=== PATIENT | male | born 1985 | race Caucasian/White ===

== ENCOUNTER 2021-01-13 11:03 | Inpatient (IN) | payer OTHER, SELFPAY ==
[2021-01-13] VITALS (15 sets, daily range): BP systolic 126–163; BP diastolic 68–98; PULSE 99–126; RESP 16–20; TEMP 37.3–38.9; O2SAT 92–99; BMI 34.8
--- NOTE | 2021-01-13 11:25 | CT_ITS ---
WS: [id number] CT ABDOMEN AND PELVIS WITH CONTRAST HISTORY: ? perianal to scrotal fistula TECHNIQUE: Imaging performed of the abdomen and pelvis with IV contrast. Single phase imaging of the abdomen. Coronal and sagittal reformats are submitted. All CT scans at [facility] use at least one of these dose optimization techniques: automated exposure control; mA and/or kV adjustment per patient size (includes targeted exams where dose is matched to clinical indication); or iterativ e reconstruction. IV CONTRAST: Omnipaque 300; 95 mL IV. Oral contrast: No DLP: 3240.11 mGy.cm COMPARISON: None available. Lower thorax: 3 mm nodule incompletely visualized at the RIGHT lung base. Heart is normal size. Small hiatal hernia. Liver/biliary system: Normal size liver with moderate hepatic steatosis. Gallbladder: Normal. No gallstones or wall thickening. No pericholecystic fluid. Pancreas: Normal. Spleen: Normal. Adrenal glands: Normal. Right kidney: Normal. Left kidney: Normal size kidney. 2 mm nonobstructing calcification in the mid kidney. Aorta: Mild atherosclerosis with no aneurysm. Lymphadenopathy: None. Free fluid: None. GI tract: Normal appendix. No GI tract obstruction. No significant perinephric inflammatory changes s urrounding the rectum or sigmoid. No air in the perirectal fat. Abdominal wall: Unremarkable abdominal wall. No hernia. Pelvis: Minimally distended urinary bladder. No free fluid or adenopathy. There are slightly prominen t bilateral inguinal lymph nodes which are mildly hypervascular. Diffuse enhancement and edema surrounding the scrotum and into the perineum. There is no fistulous co nnection to the GI tract. There are very few tiny foci of air within the scrotal wall which in the co rrect clinical setting may be related to necrotizing fasciitis. Bones: Unremarkable. CT/CT abdomen pelvis w con* [id number] IMPRESSION: 1. No fistulous communication between the anus and scrotum. 2. Severe scrotal wall and perineum soft tissue thickening with enhancement, c onsistent with cellulitis. No abscess. There are a few tiny foci of air within the perineum and scrotal wall raising the possibility of early necrotizing fasc iitis. 3. Mildly reactive bilateral inguinal lymph nodes.
--- NOTE | 2021-01-13 11:40 | ED_ITS ---
HPI - Skin/Abscess/Foreign Bdy General: Chief complaint: Skin/Abscess/Foreign Body Stated complaint: PAIN ON SCROTUM Time Seen by Provider: 01/13/21 11:06 Source: patient and family () Mode of arrival: ambulatory Limitations: no limitations History of Present Illness: HPI narrative: This is a 35-year-old male who has had a history of recurrent pilonidal cyst and had surgery on his sacral pilonidal cyst over a year ago. He has had tracking from the cyst to his scrotal region and he has been gradually getting worse. According to the patient he had an MRI of the area done and it showed a fistula and was planned to have surgery in January of last year but then the COVID-19 pandemic hit and his surgery has been postponed. Since then he has moved from [place] to [facility] and does not have a primary care provider at this time. This morning he noticed severe swelling of his scrotum as well as a lot of discharge. He also has a fever and so came in here for evaluation. MD complaint: abscess/boil Onset (ago): year(s) (3) Location: genitals Severity: severe Relieving factors: none Exacerbating factors: none Associated symptoms: Reports chills and fever(s); Deny arthralgias, cough, nausea or vomiting Review of Systems General: Reports: 10 or more systems reviewed and unremarkable except in HPI and below Const: Reports: fever(s) and chills Eyes: Denies: change in vision or blurry vision ENMT: Denies: throat pain, enlarged tonsils, odynophagia, hoarseness, mouth pain or swelling of lips/tongue Card: Denies: palpitations, irregular heart rhythm, edema or swelling of feet/ankles Resp: Denies: dyspnea, productive cough or non-productive cough GI: Denies: abdominal pain, nausea or vomiting : Denies: flank pain, dysuria, urinary frequency, urinary urgency or urinary hesitancy Musc: Denies: neck pain, back pain or extremity swelling Skin/Breast: Denies: rash, pruritus or erythema Neuro: Denies: headache(s), numbness in extremities or weakness in extremities Endo: Denies: polyuria, polydipsia or tired all the time [facility] ED PFSH: Medical History (Updated 01/13/21 @ 17:26 by Angela Pena MD, [facility]) Abscess of deep perineal space Pilonidal cyst Surgical History (Updated 01/13/21 @ 16:44 by Avi Hayden MD) History of surgical removal of pilonidal cyst Family History (Updated 01/13/21 @ 16:45 by Avi Hayden MD) Denies family history of Diabetes Anesthesia complication Bleeding disorder Social History (Updated 01/13/21 @ 16:45 by Avi Hayden MD) Marital status: Current occupation: He is a [employer] Physical Exam Const: COMMON NORMALS: no acute distress, average body habitus, patient oriented x3, no limitations, healthy appearing, alert and well nourished Neck/C-Spine: COMMON NORMALS: no meningeal signs and no JVD Resp: COMMON NORMALS: normal respiratory effort, No retractions, No use of accessory muscles, clear to auscultation bilaterally and percussion normal AUSCULTATION: clear to auscultation bilaterally PERCUSSION: percussion normal Cardio: COMMON NORMALS: no JVD, regular rate, regular rhythm, S1 normal heart sound present, S2 normal heart sound present, No gallops present (Cardio), No clicks present (Cardio), No murmurs present (Cardio), No rub (Cardio) and Peripheral pulses 2+ throughout RATE: regular rate RHYTHM: regular rhythm HEART SOUNDS: S1 normal heart sound present and S2 normal heart sound present PERIPHERAL PULSES: Peripheral pulses 2+ throughout GI: COMMON NORMALS: Normal to inspection, nondistended, normoactive bowel sounds present, Soft to palpation, non-tender, No hepatosplenomegaly present, no masses and no bruits PALPATION: Yes Soft to palpation and Yes No hepatosplenomegaly present : OTHER: Scrotal skin is edematous and markedly swollen. There is an area of induration that feels cordlike starting from the perineal/anal region and extends anteriorly to the scrotum. There is no appreciable drainage but there appears to be a punctate open area on the inferior most part of the scrotum. There is mild tenderness. The area also has warmth and induration. Extremity: COMMON NORMALS: normal to inspection, full ROM, capillary refill normal, no calf tenderness and no pedal edema Neuro: COMMON NORMALS: patient oriented x3 SENSORIUM/ORIENTATION: Yes alert MENINGEAL SIGNS: Yes no meningeal signs Skin: COMMON NORMALS: no rashes or lesions noted, no wounds, turgor normal, no jaundice, no petechiae and no mottling GENERAL SKIN EXAM: no rashes or lesions noted and turgor normal Course Consultations: Consultation #1: Discussed the patient with Dr. Hayden, he will come and evaluate him after he is done in the OR. Vital Signs: Vital signs: Vital Signs Temperature 99.6 F 01/13/21 11:07 Pulse Rate 103 H 01/13/21 15:23 Respiratory Rate 17 01/13/21 15:23 Blood Pressure 143/92 01/13/21 15:23 Pulse Oximetry 95 01/13/21 15:23 MDM - Skin/Abscess/Foreign Bdy MDM Narrative: Medical decision making narrative: 35-year-old male who presents to the emergency department with scrotal swelling, pain, drainage. Examination is concerning for cellulitis/abscess. CT scan done shows cellulitis and concerns for early necrotizing fasciitis. He is evaluated by the urologist and is being taken to the OR for incision and drainage and further evaluation. He was given a dose of intravenous Zosyn in the emergency department. Medical Records: Attestation: I reviewed the patient's medical records. Lab Data: Attestation: I reviewed the patient's lab results. Labs: Lab Results 01/13/21 01/13/21 01/13/21 Range/Units 11:30 11:30 11:30 WBC 18.7 H (4.0-10.0) 10^3/ uL RBC 4.71 (4.1-5.3) 10^6/u L Hgb 15.9 (11.7-16.6) g/dL Hct 46.2 (42.0-52.0) % MCV 98.1 H (80-94) fL MCH 33.8 (28.0-34.0) pg MCHC 34.4 (30.0-36.0) g/dL RDW 11.8 L (12.1-15.1) % Plt Count 255 (130-400) 10^3/c mm MPV 9.7 (7.4-10.4) fL Neut % (Auto) 88.7 % Lymph % (Auto) 6.2 % Preble % (Auto) 4.1 % Eos % (Auto) 0.3 % Baso % (Auto) 0.3 % Neut # (Auto) 16.61 H (1.8-7.7) 10^3/u L Lymph # (Auto) 1.2 (0.8-4.8) 10^3/u L Preble # (Auto) 0.8 (0.2-0.9) 10^3/u L Eos # (Auto) 0.1 (0.0-0.8) 10^3/u L Baso # (Auto) 0.1 (0.0-0.1) 10^3/u L Nucleated RBC % (a uto) 0 % Nucleated RBCs # 0.0 /100WBC Sodium 136 (136-145) mmol/L Potassium 4.2 (3.5-5.1) mmol/L Chloride 100 (98-107) mmol/L Carbon Dioxide 22 (22-29) mmol/L Anion Gap 18.2 (5-19) BUN 10 (6-20) mg/dL Creatinine 0.7 (0.7-1.2) mg/dL GFR Calculation 128.3 (90-130) mL/min Glucose 91 (65-115) mg/dL Calculated Osmolal ity 281 L (285-295) mOsm/k g Lactate 2.3 H (0.5-2.2) mmol/L Calcium 9.1 (8.5-10.5) mg/dL Total Bilirubin 1.1 (0.15-1.2) mg/dL AST 40 (0-40) U/L ALT 72 H (0-41) U/L Alkaline Phosphata se 133 H (40-130) IU/L C-Reactive Protein 2.8 (0.0-4.9) mg/L Total Protein 7.8 (6.6-8.7) g/dL Albumin 4.4 (3.5-5.2) g/dL Globulin 3.4 (1.3-4.6) g/dL Urine Color (Yellow) Urine Appearance (CLEAR) Urine pH (5-7) Ur Specific Gravit y (1.005-1.030) Urine Protein (Negative) Urine Glucose (UA) (Normal) Urine Ketones (Negative) Urine Blood (Negative) Urine Nitrate (Negative) Urine Bilirubin (Negative) Urine Urobilinogen (Negative) mg/dL Ur Leukocyte Mary ase (Negative) Urine RBC (0-2) /hpf Urine WBC (0-5) /hpf Ur Squamous Epith Cells (0-5) /hpf Amorphous Sediment Urine Bacteria (NONE) /hpf Urine Mucus /hpf 01/13/21 Range/Units 12:14 WBC (4.0-10.0) 10^3/ uL RBC (4.1-5.3) 10^6/u L Hgb (11.7-16.6) g/dL Hct (42.0-52.0) % MCV (80-94) fL MCH (28.0-34.0) pg MCHC (30.0-36.0) g/dL RDW (12.1-15.1) % Plt Count (130-400) 10^3/c mm MPV (7.4-10.4) fL Neut % (Auto) % Lymph % (Auto) % Preble % (Auto) % Eos % (Auto) % Baso % (Auto) % Neut # (Auto) (1.8-7.7) 10^3/u L Lymph # (Auto) (0.8-4.8) 10^3/u L Preble # (Auto) (0.2-0.9) 10^3/u L Eos # (Auto) (0.0-0.8) 10^3/u L Baso # (Auto) (0.0-0.1) 10^3/u L Nucleated RBC % (a uto) % Nucleated RBCs # /100WBC Sodium (136-145) mmol/L Potassium (3.5-5.1) mmol/L Chloride (98-107) mmol/L Carbon Dioxide (22-29) mmol/L Anion Gap (5-19) BUN (6-20) mg/dL Creatinine (0.7-1.2) mg/dL GFR Calculation (90-130) mL/min Glucose (65-115) mg/dL Calculated Osmolal ity (285-295) mOsm/k g Lactate (0.5-2.2) mmol/L Calcium (8.5-10.5) mg/dL Total Bilirubin (0.15-1.2) mg/dL AST (0-40) U/L ALT (0-41) U/L Alkaline Phosphata se (40-130) IU/L C-Reactive Protein (0.0-4.9) mg/L Total Protein (6.6-8.7) g/dL Albumin (3.5-5.2) g/dL Globulin (1.3-4.6) g/dL Urine Color Yellow (Yellow) Urine Appearance Clear (CLEAR) Urine pH 5 (5-7) Ur Specific Gravit y 1.025 (1.005-1.030) Urine Protein Trace (Negative) Urine Glucose (UA) Norm (Normal) Urine Ketones 1+ H (Negative) Urine Blood Neg (Negative) Urine Nitrate Negative (Negative) Urine Bilirubin 1+ H (Negative) Urine Urobilinogen 1 H (Negative) mg/dL Ur Leukocyte Mary ase Negative (Negative) Urine RBC None (0-2) /hpf Urine WBC None (0-5) /hpf Ur Squamous Epith Cells 0-4 H (0-5) /hpf Amorphous Sediment Not Reportable Urine Bacteria Trace (NONE) /hpf Urine Mucus 1+ /hpf Imaging Data^: CT Abd/Pel: Attestation: I personally reviewed and interpreted this imaging study as follows: Radiologist's impression: [place] [address] CT Scan Report Signed Patient: Aldo ALICEA #: [id number] : 1985Acct#:[id number] Age/Sex: 35 / MADM Date: 01/13/21 Loc: ERRoom/Bed: Attending Dr: Ordering Provider/Ordering MD: Angela Pena MD, [facility] Date of Service: 01/13/21 Procedure(s): CT abdomen pelvis w con* [id number] Accession Number(s): [id number] Report Number: [id number] WS: [id number] CT ABDOMEN AND PELVIS WITH CONTRAST HISTORY: ? perianal to scrotal fistula TECHNIQUE: Imaging performed of the abdomen and pelvis with IV contrast. Single phase imaging of the abdomen. Coronal and sagittal reformats are submitted. All CT scans at [facility] use at least one of these dose optimization techniques: automated exposure control; mA and/or kV adjustment per patient size (includes targeted exams where dose is matched to clinical indication); or iterative reconstruction. IV CONTRAST: Omnipaque 300; 95 mL IV. Oral contrast: No DLP: 3240.11 mGy.cm COMPARISON: None available. Lower thorax: 3 mm nodule incompletely visualized at the RIGHT lung base. Heart is normal size. Small hiatal hernia. Liver/biliary system: Normal size liver with moderate hepatic steatosis. Gallbladder: Normal. No gallstones or wall thickening. No pericholecystic fluid. Pancreas: Normal. Spleen: Normal. Adrenal glands: Normal. Right kidney: Normal. Left kidney: Normal size kidney. 2 mm nonobstructing calcification in the mid kidney. Aorta: Mild atherosclerosis with no aneurysm. Lymphadenopathy: None. Free fluid: None. GI tract: Normal appendix. No GI tract obstruction. No significant perinephric inflammatory changes surrounding the rectum or sigmoid. No air in the perirectal fat. Abdominal wall: Unremarkable abdominal wall. No hernia. Pelvis: Minimally distended urinary bladder. No free fluid or adenopathy. There are slightly prominent bilateral inguinal lymph nodes which are mildly hypervascular. Diffuse enhancement and edema surrounding the scrotum and into the perineum. There is no fistulous connection to the GI tract. There are very few tiny foci of air within the scrotal wall which in the correct clinical setting may be related to necrotizing fasciitis. Bones: Unremarkable. CT/CT abdomen pelvis w con* [id number] IMPRESSION: 1. No fistulous communication between the anus and scrotum. 2. Severe scrotal wall and perineum soft tissue thickening with enhancement, consistent with cellulitis. No abscess. There are a few tiny foci of air within the perineum and scrotal wall raising the possibility of early necrotizing fasciitis. 3. Mildly reactive bilateral inguinal lymph nodes. Dictated By:Monalisa Miranda DO Signed By:Monalisa Miranda DOSigned Date/Time:01/13/21 1444 DD/ 1256 Discharge Plan Discharge Patient Disposition: Admitted As Inpatient Clinical Impression: Cellulitis of scrotum, Necrotizing fasciitis Condition: Stable Coding Level of Care Code ED Manager Privacy for Rochelleg Fwd Exam Detailed
[2021-01-13 11:43] LABS: Basophils # 0.1 10^3/uL (0.0-0.1); Basophils % 0.3 %; Eosinophils # 0.1 10^3/uL (0.0-0.8); Eosinophils % 0.3 %; Hematocrit 46.2 % (42.0-52.0); Hemoglobin 15.9 g/dL (11.7-16.6); Lymphocytes # 1.2 10^3/uL (0.8-4.8); Lymphocytes % 6.2 %; Mean Corpuscular HGB Conc 34.4 g/dL (30.0-36.0); Mean Corpuscular Hemoglobin 33.8 pg (28.0-34.0); Mean Corpuscular Volume 98.1 fL (80-94); Mean Platelet Volume 9.7 fL (7.4-10.4); Monocytes # 0.8 10^3/uL (0.2-0.9); Monocytes % 4.1 %; Neutrophils # 16.61 10^3/uL (1.8-7.7); Neutrophils % 88.7 %; Nucleated Red Blood Cells % 0 %; Platelet Count 255 10^3/cmm (130-400); Red Blood Count 4.71 10^6/uL (4.1-5.3); Red Cell Distribution Width 11.8 % (12.1-15.1); White Blood Count 18.7 10^3/uL (4.0-10.0)
[2021-01-13 11:57] LABS: Lactate (Lactic Acid level) 2.3 mmol/L (0.5-2.2)
[2021-01-13 11:58] LABS: Alanine Aminotransferase 72 U/L (0-41); Albumin Level 4.4 g/dL (3.5-5.2); Alkaline Phosphatase 133 IU/L (40-130); Anion Gap 18.2 (5-19); Aspartate Amino Transferase 40 U/L (0-40); Blood Urea Nitrogen 10 mg/dL (6-20); C Reactive Protein 2.8 mg/L (0.0-4.9); Calcium 9.1 mg/dL (8.5-10.5); Carbon Dioxide 22 mmol/L (22-29); Chloride 100 mmol/L (98-107); Globulin 3.4 g/dL (1.3-4.6); Glomerular Filtration Rate 128.3 mL/min (90-130); Glucose 91 mg/dL (65-115); Osmolality Calculated 281 mOsm/kg (285-295); Potassium 4.2 mmol/L (3.5-5.1); Sodium 136 mmol/L (136-145); Total Bilirubin 1.1 mg/dL (0.15-1.2); Total Protein 7.8 g/dL (6.6-8.7)
[2021-01-13 12:25] LABS: Add Urine Microscopic? YES; Bilirubin Urine 1+ (Negative); Blood Urine Neg (Negative); Glucose Urine UA Norm (Normal); Ketones Urine 1+ (Negative); Leukocyte Esterase Urine Negative (Negative); Nitrate Urine Negative (Negative); Protein Urine Trace (Negative); Specific Gravity, Urine 1.025 (1.005-1.030); Urine Appearance Clear (CLEAR); Urine Color Yellow (Yellow); Urobilinogen Urine 1 mg/dL (Negative); pH Urine 5 (5-7)
[2021-01-13] MEDS: iohexol 300 mg/mL 100 mL Btl IV (12:44)
[2021-01-13 12:59] LABS: Add Urine Culture? No; Bacteria Urine TRACE /hpf; Mucus Urine 1+ /hpf; Squamous Epithelial Cell Urine 0-4 /hpf (0-5)
[2021-01-13] MEDS: ondansetron 2 mg/ML SDV 2 mL 4 MG IVP (13:13)
[2021-01-13] MEDS: morphine 4 mg/mL SDV 1 mL IVP (13:14)
[2021-01-13] MEDS: piperacillin-tazobactam 3.375 GM in sodium chloride 0.9% (plus) 50 ML IV ×2 (13:42→21:06)
[2021-01-13] MEDS: fentaNYL 50 mcg/mL INJ 2mL 100 MCG IVP (15:21)
--- NOTE | 2021-01-13 16:35 | PM.HP ---
Providers/Chief Complaint Chief Complaint: PAIN ON SCROTUM History of Present Illness COLTON ALICEA is a 35 year old male admitted through the emergency department with a history of recurrent perineal abscess at times requiring lancing and drainage but no formal wide excision/drainage previously. He also has a long history of pilonidal cyst complications and was apparently scheduled for a wide excision of pilonidal cyst before he moved from [place] to [place]. He has been here since September 2020. States that he has chronic drainage very frequently from the perineal area. He squeezes it when it becomes the size of an acorn and it drains out. Has had times where it was the size of a fist and drained spontaneously. Denies any problems in the past with his scrotum. Last spontaneous drainage from the perineal wound was about 2 or 3 days ago. Nothing dramatic but essentially baseline. This morning he woke up with a red swollen painful scrotum. The redness extended up into his right groin. [place] ill. Complained of fever and chills along with malaise. Presented to the emergency department. A CT scan showed a lot of thickening of the scrotum and a couple tiny areas of gas in the mostly perineal area. No significant gas infusion. There appeared to be possibly a collection of fluid in the perineal area. The scrotal wall was very thickened. I was consulted for concern for possible necrotizing fasciitis/Jessica's gangrene. Additional work-up: White count 18.7, lactate 2.3, ALT 72 alkaline phos 133 unremarkable urinalysis. Blood cultures have been sent. Physical exam reveals a very erythematous thickened scrotal wall with significant edema mostly on the inferior aspect extending toward the scrotal perineal junction. The redness extends up into the right groin. There is no crepitus. No active drainage. He is tender but it is not dramatic. Based on his prior history, CT scan findings, clinical picture of significant infection I have recommended that he be placed on triple antibiotics with clindamycin, vancomycin, Zosyn and be taken to the operating room for exploration of the perineum and if evidence of necrotic process potentially wide excision appropriate for Jessica's gangrene. I reviewed all of this in detail with the patient. Explained the potential of a very severe infection and potentially life-threatening if in fact necrotizing fasciitis. Review of Systems Const: Reports: fever(s), chills and malaise Eyes: Denies: change in vision or blurry vision ENMT: Denies: throat pain or change in hearing Card: Denies: chest pain or palpitations Resp: Denies: dyspnea, productive cough or wheezing GI: Denies: abdominal pain : Reports: other (Scrotal infection see HPI); Denies: change in urine stream or penile discharge Musc: Denies: neck pain, back pain, joint redness or joint warmth Skin/Breast: Reports: erythema and changes in skin color Neuro: Denies: confusion, Slurred speech present or seizure-like activity Psych: Denies: anxiety or depression Endo: Denies: excessive sweating or flushing Ritesh/Lymph: Denies: enlarged lymph nodes All/Imm: Denies: urticaria or acute wheezing Medications/Allergies Home Medications Medication Instructions Recorded Confirmed Last Taken Type No Known Home Medications 01/13/21 01/13/21 Unknown History Allergies Allergy/AdvReac Type Severity Reaction Status Date / Time No Known Allergies Allergy Verified 01/13/21 11:14 PFSH Acute PFSH: Medical History (Updated 01/13/21 @ 17:26 by Angela Pena MD, [facility] [place]) Abscess of deep perineal space Pilonidal cyst Surgical History (Updated 01/13/21 @ 16:44 by Avi Hayden MD) History of surgical removal of pilonidal cyst Family History (Updated 01/13/21 @ 16:45 by Avi Hayden MD) Denies family history of Diabetes Anesthesia complication Bleeding disorder Social History (Updated 01/13/21 @ 16:45 by Avi Hayden MD) Marital status: Current occupation: He is a [employer] Vitals/I&O/Wt Last Vital Signs Temp 99.6 F 01/13/21 11:07 Pulse 103 H 01/13/21 15:23 Resp 17 01/13/21 15:23 BP 143/92 01/13/21 15:23 Pulse Ox 95 01/13/21 15:23 Weight last 48 hrs Weight 250 lb Physical Exam Const: COMMON NORMALS: no acute distress, alert and well nourished GENERAL APPEARANCE: well kempt and well developed ORIENTATION/CONSCIOUSNESS: not confused HENMT: HEAD & SCALP: normocephalic and atraumatic Eye: COMMON NORMALS: conjunctivae normal and no scleral icterus Neck/C-Spine: COMMON NORMALS: full ROM GENERAL: Yes normal visual inspection Lymph: LYMPHATIC: No no lymphadenopathy noted and no lymphedema noted Resp: COMMON NORMALS: normal respiratory effort EFFORT & INSPECTION: No labored and No Actively coughing Cardio: COMMON NORMALS: regular rate and regular rhythm GI: COMMON NORMALS: Normal to inspection, nondistended, normoactive bowel sounds present, Soft to palpation and non-tender : COMMON NORMALS: Yes no CVA tenderness MALE GROIN/PERINEUM EXAM: Yes edema (Right groin), Yes erythema, Yes perineal induration and Yes other (No perineal crepitus. Definitely thickened and indurated) PENIS: circumcised, edematous and erythematous MEATUS: meatus normal SCROTUM: Yes other (Grossly abnormal. Thickened, erythematous, consistent with cellulitis. No) TESTES: Yes testicular lie normal Extremity: COMMON NORMALS: no clubbing, cyanosis or edema Neuro: COMMON NORMALS: no focal motor deficits SENSORIUM/ORIENTATION: Yes alert Psych: COMMON NORMALS: mental status grossly normal APPEARANCE: Yes grossly normal and Yes well kempt ATTITUDE: Yes calm and Yes engaged Skin: COMMON NORMALS: no rashes or lesions noted and no jaundice Data : 01/13/21 11:30 01/13/21 11:30 Micro: Microbiology 01/13/21 12:08 Blood Culture - Preliminary Blood SPECIMEN COLLECTED 01/13/21 11:30 Blood Culture - Preliminary Blood SPECIMEN COLLECTED A&P Assessment and plan (1) Abscess of deep perineal space: Chronic recurrent draining perineal abscess. Acute onset of scrotal erythema and edema with extension up into the right groin. To the operating room emergently for incision and drainage of perineal abscess possible wide debridement if evidence of Jessica's gangrene. Status: Acute (2) Pilonidal cyst: Chronic recurrent pilonidal cyst status post previous drainage in [place]. Was scheduled for a wide excision but that was canceled during the Covid crisis out there. He will need follow-up with local general surgery. Status: Acute Attestations Medical Necessity Statement*: Ill, severe infection, need to rule out Jessica's gangrene. Will require inpatient hospital stay >2 midnights possibly ICU pending degree of excision required. Coding Level of Care Code Acute Latex Foam Worker for Chg Fwd Exam Comprehensive Diagnoses Abscess of deep perineal space N34.0 Pilonidal cyst L05.91
--- NOTE | 2021-01-13 16:41 | P.ANESASSM_ITS ---
Pre-Anesthetic Assessment Pre-Anesthetic Assessment: Height/Weight: Height 1.8 m Weight 113.398 kg Temp Pulse Resp BP Pulse Ox 99.6 F 103 H 17 143/92 95 01/13/21 11:07 01/13/21 15:23 01/13/21 15:23 01/13/21 15:23 01/13/21 15:23 Preop Diagnosis: Scrotal cellulitis Proposed Procedure: Operation Date: 01/13/21 16:00 Proposed Procedures p possible scrotal exploration(Not Applicable) - Avi Hayden MD Familial anesthetic complications: NOne Was Beta Jamar taken within 24 hours: N/A Last intake: [place] w/ creamer at 0800 Social: Social History: Alcohol (2-3 beers every other day) and Tobacco Exam: Pre-Anes Outpt Exam: alert, oriented x 3, clear to auscultation bilaterally and regular rate & rhythm Airway: Cervical ROM: WNL MP: 4 Dentition: Other (bridge) Anesthetic Plan: ASA status: 1E Anesthesia: General Risk of > 500 ml blood loss (7ml/kg in children): No Data Anesthesia CBC & Chem 7: 01/13/21 11:30 01/13/21 11:30 Other Labs: Laboratory Results - last 48 hr 01/13/21 01/13/21 01/13/21 11:30 11:30 11:30 WBC 18.7 H RBC 4.71 Hgb 15.9 Hct 46.2 MCV 98.1 H MCH 33.8 MCHC 34.4 RDW 11.8 L Plt Count 255 MPV 9.7 Neut % (Auto) 88.7 Lymph % (Auto) 6.2 [place] % (Auto) 4.1 Eos % (Auto) 0.3 Baso % (Auto) 0.3 Neut # (Auto) 16.61 H Lymph # (Auto) 1.2 [place] # (Auto) 0.8 Eos # (Auto) 0.1 Baso # (Auto) 0.1 Nucleated RBC % (auto) 0 Nucleated RBCs # 0.0 Sodium 136 Potassium 4.2 Chloride 100 Carbon Dioxide 22 Anion Gap 18.2 BUN 10 Creatinine 0.7 GFR Calculation 128.3 Glucose 91 Calculated Osmolality 281 L Lactate 2.3 H Calcium 9.1 Total Bilirubin 1.1 AST 40 ALT 72 H Alkaline Phosphatase 133 H C-Reactive Protein 2.8 Total Protein 7.8 Albumin 4.4 Globulin 3.4 Urine Color Urine Appearance Urine pH Ur Specific [place] Urine Protein Urine Glucose (UA) Urine Ketones Urine Blood Urine Nitrate Urine Bilirubin Urine Urobilinogen Ur Leukocyte Esterase Urine RBC Urine WBC Ur Squamous Epith Cells Amorphous Sediment Urine Bacteria Urine Mucus 01/13/21 12:14 WBC RBC Hgb Hct MCV MCH MCHC RDW Plt Count MPV Neut % (Auto) Lymph % (Auto) [place] % (Auto) Eos % (Auto) Baso % (Auto) Neut # (Auto) Lymph # (Auto) [place] # (Auto) Eos # (Auto) Baso # (Auto) Nucleated RBC % (auto) Nucleated RBCs # Sodium Potassium Chloride Carbon Dioxide Anion Gap BUN Creatinine GFR Calculation Glucose Calculated Osmolality Lactate Calcium Total Bilirubin AST ALT Alkaline Phosphatase C-Reactive Protein Total Protein Albumin Globulin Urine Color Yellow Urine Appearance Clear Urine pH 5 Ur Specific [place] 1.025 Urine Protein Trace Urine Glucose (UA) Norm Urine Ketones 1+ H Urine Blood Neg Urine Nitrate Negative Urine Bilirubin 1+ H Urine Urobilinogen 1 H Ur Leukocyte Esterase Negative Urine RBC None Urine WBC None Ur Squamous Epith Cells 0-4 H Amorphous Sediment Not Reportable Urine Bacteria Trace Urine Mucus 1+ Micro: Microbiology 01/13/21 12:08 Blood Culture - Preliminary Blood SPECIMEN COLLECTED 01/13/21 11:30 Blood Culture - Preliminary Blood SPECIMEN COLLECTED Cardiac Studies: No Data to Display
[2021-01-13] MEDS: sodium chloride 0.9% 1,000 ML 30 ML IV (17:08)
[2021-01-13] MEDS: clindamycin 600 MG/50 ML PREMIX 100 MG IV (17:15)
[2021-01-13] MEDS: meperidine 50 mg/mL INJ (18:11)
--- NOTE | 2021-01-13 18:13 | P.PCN_ITS ---
PACU note PACU note: VSS, Good respiratory effort, report to MOTOR EXPRESS CLERK Post-Anesthesia Exam: awake
--- NOTE | 2021-01-13 18:13 | PM.PACU ---
PACU note PACU note: VSS, Good respiratory effort, report to RAILROAD COMMISSIONER Post-Anesthesia Exam: awake
--- NOTE | 2021-01-13 18:14 | SUR.PHASEI ---
1810- ORAL AIRWAY REMOVED, SIMPLE MASK AT 6LPM SAT 96%
--- NOTE | 2021-01-13 18:15 | PM.OP ---
Operative Report Date of procedure: January 13, 2021 Pre-op Diagnosis: Scrotal cellulitis, recurrent perineal abscess Post-op diagnosis: same Procedure Done: 1. Incision and drainage perineal abscess/infected sinus track 2. 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 Chronically scarred and indurated tissue widely excised from the perineum. No communicating abscess with the scrotum or the rectal area. No evidence of necrotic tissue. Wound left open and packed sterilely Condition: stable Disposition: PACU Brief History: Mr. Garza is a healthy 35-year-old white male with a long history of multiple skin infections including pilonidal cyst, boils, and over the last several years recurrent perineal abscesses. He has had multiple lancing of these abscesses but states that they have chronically drain with the last time being approximately 2 days ago. He has had several episodes where he drained an abscess in the perineal area roughly the size of his fist. He notices these recurring and he will express them manually and that usually improves. This morning he woke up with increasing redness and swelling of the scrotum extending down into the perineum. The redness extended up into the right groin. He had some fever and chills. Presented to the emergency department where a CT scan showed what appeared to be possibly some air within the perineal tissues and just a couple of areas no clear defined abscess, and very edematous scrotal wall. White count was >18,000. Lactate was 2.3. He was hemodynamically stable and appeared healthy although he said he felt pretty bad. Physical exam revealed significant induration in the perineum with areas of multiple prior lancing. The scrotum was edematous but without fluctuance. It was quite erythematous and both extended down toward the perineum. There was some erythema extending up into the right groin. No crepitus no evidence of skin necrosis or eschar. Because of the concern for possible necrotizing fasciitis but more likely chronic abscess in the perineum it was recommended to go to the operating room emergently for exploration. Procedure: After emergent evaluation examination and obtaining of informed consent he was taken to the operating suite on 01/13/2021 where general anesthesia was administered without difficulty after appropriate timeout was performed, SCDs confirmed to be functioning, preoperative antibiotics administered, beta-divine protocol confirmed. A 16 Gabonese Nelson catheter was placed by myself. Clear urine drained. Prepped and draped in usual sterile fashion in dorsolithotomy position paying careful attention to avoiding pressure points. He was placed in slight Trendelenburg position to expose his perineum better. Reexamination revealed no change from his ER physical exam. There is no further extension of the erythema. No crepitus etc. There was extensive induration of the perineum along the perineal body and multiple sites of previous drainage. I could not clearly palpate a fluctuant cavity. A midline incision was made in the area of most erythematous and swelling and a few small draining sinuses with purulence were identified.. Cultures were taken. The sinuses and the indurated tissue were then excised with a wider excision of the entire indurated area from penoscrotal junction down to several centimeters above the anus. This was clearly a chronically infected area and probably the source of his ongoing drainage. I could not identify a deep abscess. All of the indurated tissue and sinuses were excised down to healthy tissue. Hemostasis was obtained with combination of electrocautery and a couple suture ligatures. The wound was hemostatic. It was dressed with a moist Kerlix with fluffed dry Kerlix on top and an ABD pad all under maternity briefs. Awakened in the operating room and returned to recovery room in stable condition. PLANS: 1. Dressing change tomorrow morning 2. Consider Nelson catheter out tomorrow but leave it in overnight tonight 3. Consider delayed closure before discharge pending healing of the wound.
--- NOTE | 2021-01-13 19:38 | PC.NURSE ---
Arrived pt arrived to floor from Pacu via gurney. Settled into hospital bed and given ice chips. No c/o pain at that time.
[2021-01-13] MEDS: acetaminophen 325 mg Tablet 650 MG PO (21:05)
--- NOTE | 2021-01-13 23:18 | ANE.PACU2 ---
Inpatient post-anesthesia follow up: Airway intact: Yes Vital signs: Temperature 99.4 F Pulse Rate [Monito r] 126 Pulse Rate 110 Respiratory Rate 18 Blood Pressure [Ri ght Arm] 159/94 Blood Pressure 126/75 Pulse Oximetry 92 Oxygen Delivery Me thod Nasal Cannula Oxygen Flow Rate 2 Fraction of Inspir ed Oxygen Hydration adequate: Yes Nausea and vomiting: No Pain level: 2 Mental status: Baseline
[2021-01-14] VITALS (9 sets, daily range): BP systolic 104–136; BP diastolic 70–86; PULSE 96–119; RESP 16–23; TEMP 36.9–37.7; O2SAT 94–97
[2021-01-14] MEDS: ketorolac 30 mg/mL INJ 15 MG IVP ×2 (01:29→07:24)
[2021-01-14] MEDS: clindamycin 600 MG/50 ML PREMIX 100 MG IV ×2 (01:32→08:51)
[2021-01-14] MEDS: piperacillin-tazobactam 3.375 GM in sodium chloride 0.9% (plus) 50 ML IV ×3 (05:00→20:47)
[2021-01-14 05:12] LABS: Basophils % 0.2 %; Eosinophils # 0.1 10^3/uL (0.0-0.8); Eosinophils % 0.6 %; Hematocrit 40.1 % (42.0-52.0); Hemoglobin 13.5 g/dL (11.7-16.6); Lymphocytes % 9.6 %; Mean Corpuscular HGB Conc 33.7 g/dL (30.0-36.0); Mean Platelet Volume 9.9 fL (7.4-10.4); Monocytes # 0.5 10^3/uL (0.2-0.9); Monocytes % 4.8 %; Neutrophils # 8.93 10^3/uL (1.8-7.7); Neutrophils % 84.5 %; Nucleated Red Blood Cells % 0 %; Platelet Count 199 10^3/cmm (130-400); Red Blood Count 3.97 10^6/uL (4.1-5.3); White Blood Count 10.6 10^3/uL (4.0-10.0)
[2021-01-14 06:11] LABS: Anion Gap 15.1 (5-19); Blood Urea Nitrogen 15 mg/dL (6-20); Calcium 8.4 mg/dL (8.5-10.5); Carbon Dioxide 23 mmol/L (22-29); Chloride 102 mmol/L (98-107); Glucose 91 mg/dL (65-115); Osmolality Calculated 282 mOsm/kg (285-295); Potassium 4.1 mmol/L (3.5-5.1); Sodium 136 mmol/L (136-145)
[2021-01-14] MEDS: sodium chloride 0.9% 1,000 ML 50 ML IV (07:24)
[2021-01-14] MEDS: LORazepam 2 mg/mL INJ 1 mL 0.5 MG IVP (07:42)
[2021-01-14] MEDS: HYDROmorphone 1 mg/mL INJ 1 mL IVP ×4 (07:43→20:54)
--- NOTE | 2021-01-14 08:19 | PM.PN ---
Subjective Subjective: Interval history: Urology follow-up: Postop day #1 I&D perineal abscess with excision of chronic sinus tracts Temperature max was about 7 PM last night at roughly 102. Normalized since. No progressive malaise chills etc. White count has decreased from 18.7-10.6. Normal electrolytes. Denies chest pain, shortness of breath, increasing abdominal pain etc. Hungry. No pain related to the genitalia currently other than the catheter Like to have the catheter removed due to discomfort. Dressing changed. No foul odor. Mild oozing from the surface. Repacked wet-to-dry. Scrotum is still significantly swollen. There is good capillary refill of the skin. No eschar no crepitus. There is no progression of the erythema in the right groin. Can see no evidence of necrotizing fasciitis/Jessica's. Plans: 1. DC Nelson catheter 2. Continue dressing changes and IV antibiotics 3. We will train his and wound care techniques tomorrow. Vitals/I&O/Wt Last Vital Signs Temp 99.4 F 01/14/21 04:00 Pulse 96 01/14/21 04:00 Resp 16 01/14/21 07:43 BP 136/86 01/14/21 04:00 Pulse Ox 97 01/14/21 04:00 01/13/21 01/14/21 01/14/21 22:59 06:59 14:59 Intake Total 1600 / 1600 600 / 2200 Output Total 500 / 500 700 / 1200 Balance 1100 / 1100 -100 / 1000 Weight last 48 hrs Weight 250 lb Physical Exam Narrative: EXAM NARRATIVE: Wound looks good. Healthy appearing without foul odor or purulence etc. Mild oozing from the surface. Scrotum is still quite erythematous and edematous. Good capillary refill. No evidence of eschar or skin loss. No progression of erythematous border into the right groin. Nontender. Const: COMMON NORMALS: no acute distress, alert and well nourished GENERAL APPEARANCE: well kempt and well developed ORIENTATION/CONSCIOUSNESS: not confused Eye: COMMON NORMALS: conjunctivae normal and no scleral icterus CONJUNCTIVA: Yes conjunctivae normal Resp: COMMON NORMALS: normal respiratory effort EFFORT & INSPECTION: No labored and No Actively coughing Extremity: COMMON NORMALS: no clubbing, cyanosis or edema Neuro: COMMON NORMALS: no focal motor deficits SENSORIUM/ORIENTATION: Yes alert Psych: COMMON NORMALS: mental status grossly normal APPEARANCE: Yes grossly normal and Yes well kempt ATTITUDE: Yes calm and Yes engaged Urinary Catheter Management^: Nelson Latex: Cath Placed During This Visit: yes Urinary Catheter Date of Insertion: 01/13/21 Urinary Catheter Time of Insertion: 17:35 Data : 01/14/21 04:59 01/14/21 04:59 Other Labs: The labs above are from yesterday. His white count today is 10.6. Micro: Microbiology 01/13/21 12:08 Blood Culture - Preliminary Blood SPECIMEN COLLECTED 01/13/21 11:30 Blood Culture - Preliminary Blood SPECIMEN COLLECTED A&P Assessment and plan (1) Abscess of deep perineal space: Status post incision drainage as well as excision of chronic scarred draining abscesses and sinus tracts. Status: Acute (2) Cellulitis of scrotum: No progression. Good capillary refill. Continue current antibiotics. Status: Acute Attestations Medical Necessity Statement*: Severe infection requiring IV antibiotics and wound care. Coding Level of Care Code Acute Enterprise Data Architect for Ana Durant Diagnoses Abscess of deep perineal space N34.0 Cellulitis of scrotum N49.2
[2021-01-14] MEDS: docusate sodium 100 mg Capsule PO (08:52)
[2021-01-14] MEDS: oxyCODONE-APAP 5-325 mg Tablet 1 TAB PO ×2 (10:34→16:51)
--- NOTE | 2021-01-14 18:36 | PC.NURSE ---
SHIFT SUMMARY PATIENT HAS DONE WELL TODAY. DR. FRANKLIN CHANGED PATIENT'S SURGICAL DRESSING THIS MORNING. DRESSING HAS STAYED IN PLACE THROUGHOUT THE DAY WITH MINIMAL DRAINAGE. PATIENT HAS BEEN STAYING IN BED TO KEEP SCROTUM ELEVATED TO HELP EDEMA. PAIN WELL CONTROLLED. PATIENT HAS URINATED WITHOUT DIFFICULTY AFTER WELCH CATHETER REMOVAL. GOOD URINE OUTPUT. URINE CHARACTERISTICS IMPROVING. NO COMPLAINTS AT THIS TIME.
--- NOTE | 2021-01-14 20:54 | PC.NURSE ---
pts vitals for 01/14/21 in the 1999.....99.9oral...127/72 119 94 23
[2021-01-14 21:45] LABS: Vancomycin Trough 31.5 ug/mL (10-15)
--- NOTE | 2021-01-14 22:08 | PC.PHAR ---
ancomycin trough showes 31.5; however review shows Vancomycin administered at 16.52 and blood drawn at 2014. We will try again to have the trough level drawn before the drug is administered for an accurate result.
[2021-01-15] VITALS (14 sets, daily range): BP systolic 115–137; BP diastolic 67–87; PULSE 91–109; RESP 16–22; TEMP 36.6–37.6; O2SAT 91–95
[2021-01-15] MEDS: oxyCODONE-APAP 5-325 mg Tablet 1 TAB PO ×4 (00:46→21:32)
[2021-01-15 01:23] LABS: Vancomycin Trough 17.9 ug/mL (10-15)
[2021-01-15] MEDS: HYDROmorphone 1 mg/mL INJ 1 mL IVP ×5 (02:00→23:56)
[2021-01-15] MEDS: piperacillin-tazobactam 3.375 GM in sodium chloride 0.9% (plus) 50 ML IV ×3 (04:49→21:02)
[2021-01-15 07:03] LABS: Basophils % 0.3 %; Eosinophils # 0.2 10^3/uL (0.0-0.8); Eosinophils % 2.6 %; Hematocrit 41.1 % (42.0-52.0); Hemoglobin 13.4 g/dL (11.7-16.6); Lymphocytes # 1.4 10^3/uL (0.8-4.8); Lymphocytes % 14.8 %; Mean Corpuscular HGB Conc 32.6 g/dL (30.0-36.0); Mean Corpuscular Hemoglobin 33.8 pg (28.0-34.0); Mean Corpuscular Volume 103.8 fL (80-94); Monocytes # 0.6 10^3/uL (0.2-0.9); Monocytes % 6.8 %; Neutrophils # 6.94 10^3/uL (1.8-7.7); Neutrophils % 75.1 %; Nucleated Red Blood Cells % 0 %; Platelet Count 182 10^3/cmm (130-400); Red Blood Count 3.96 10^6/uL (4.1-5.3); Red Cell Distribution Width 12.2 % (12.1-15.1); White Blood Count 9.3 10^3/uL (4.0-10.0)
--- NOTE | 2021-01-15 07:25 | PC.NURSE ---
Report to Martha WU at this time.
[2021-01-15 07:33] LABS: Anion Gap 11.9 (5-19); Blood Urea Nitrogen 9 mg/dL (6-20); Carbon Dioxide 25 mmol/L (22-29); Chloride 107 mmol/L (98-107); Glucose 108 mg/dL (65-115); Osmolality Calculated 289 mOsm/kg (285-295); Potassium 3.9 mmol/L (3.5-5.1); Sodium 140 mmol/L (136-145)
[2021-01-15] MEDS: sodium chloride 0.9% 1,000 ML 50 ML IV (08:09)
--- NOTE | 2021-01-15 08:13 | P.PN_ITS ---
Subjective Subjective: Interval history: Urology follow-up: Postop day #2 Afebrile, no new complaints. Pain has decreased somewhat in the genital area. No generalized aching any longer. Normal bowel function yesterday. Dressing change today. No foul odor. Wound is healing. Some early granulation tissue possibly. Still with a significant amount of scrotal edema but good capillary refill. No extension of erythema in the right groin. Antibiotics: Continuing vancomycin, Cleocin, Zosyn. Discussed further treatment including continued IV antibiotics, potential switch to oral antibiotics for discharge home, pending cultures etc. I think it would be reasonable to continue wet-to-dry dressing changes as opposed to try secondary delayed closure. He and his are familiar with dressing change options. Vitals/I&O/Wt Last Vital Signs Temp 97.8 F 01/15/21 07:47 Pulse 97 01/15/21 07:47 Resp 16 01/15/21 07:47 BP 135/83 01/15/21 07:47 Pulse Ox 92 01/15/21 07:47 01/14/21 01/15/21 01/15/21 22:59 06:59 14:59 Intake Total 550 / 1150 2050 / 3200 Output Total 600 / 800 1300 / 2100 Balance -50 / 350 750 / 1100 Weight last 48 hrs Weight 250 lb Physical Exam Narrative: EXAM NARRATIVE: Genital exam: Still with significant scrotal and penile edema but somewhat less than yesterday. Good capillary refill. Diffuse erythema without significant change. No change in the right groin erythema. Within the boundaries of previous bor ders. Wound looks healthy. No foul drainage. Minimal fluid. Some early granulation tissue possibly. Dressing changed. Const: COMMON NORMALS: no acute distress, alert and well nourished GENERAL APPEARANCE: well kempt and well developed ORIENTATION/CONSCIOUSNESS: not confused Resp: COMMON NORMALS: normal respiratory effort EFFORT & INSPECTION: No la bored and No Actively coughing Extremity: COMMON NORMALS: no clubbing, cyanosis or edema Neuro: COMMON NORMALS: no focal motor deficits SENSORIUM/ORIENTATION: Yes alert Psych: COMMON NORMALS: mental status grossly normal APPEARANCE: Yes grossly normal and Yes well kempt ATTITUDE: Yes calm and Yes engaged Skin: COMMON NORMALS: no rashes or lesions noted and no jaundice GENERAL SKIN EXAM: no rashes or lesions noted Urinary Catheter Management^: Nelson Latex: Cath Placed During This Visit: yes, but has since been removed by the nurse Reason for Continuing Indwelling Catheter: Decision to DC Catheter Urinary Catheter Date of Insertion: 01/13/21 Urinary Catheter Time of Insertion: 17:35 Date Urinary Catheter Removed: 01/14/21 Time Urinary Catheter Discontinued: 10:48 Data : 01/15/21 06:50 01/15/21 06:50 Micro: Microbiology 01/13/21 11:30 Blood Culture - Preliminary Blood NEGATIVE TO DATE 01/13/21 12:08 Blood Culture - Preliminary Blood NEGATIVE TO DATE 01/13/21 17:35 Gram Stain - Final Buttock Attestation for Other Data: I personally reviewed and interpreted the following: Other data: Intraoperative wound culture: Gram stain showed gram-positive cocci in pairs and chains Culture still pending. A&P Assessment and plan (1) Abscess of deep perineal space: Status post incision drainage as well as excision of chronic scarred draining abscesses and sinus tracts. Wound appears to be developing some early granulation tissue. No evidence of eschar or fluid collections. No foul odor. Status: Acute (2) Cellulitis of scrotum: No progression of infectious changes. Good capillary refill. Continue current antibiotics. Showing some improvement. Possibly some decreased edema. Does state that he has chronic scrotal edema which will probably slow the resolution of the edema with this infection. Status: Acute Attestations Medical Necessity Statement*: Continued need for multiple IV antibiotics. Coding Level of Care Code Acute Manager Of Case Management for Ana Durant Diagnoses Abscess of deep perineal space N34.0 Cellulitis of scrotum N49.2
--- NOTE | 2021-01-15 18:00 | NUR.SHIFT ---
SHIFT SUMMARY PATIENT HAS DONE WELL TODAY. NO FEVER'S. SURGICAL DRESSING CHANGE DONE THIS MORNING BY DR. FRANKLIN. PATIENT HAS HAD COMPLAINTS OF PAIN TODAY. MOSTLY COVERED WITH ORAL MEDICATION, BUT PATIENT HAS REQUIRED IV DILAUDID A FEW TIMES WELL. EXCELLENT URINE OUTPUT. CURRENTLY RESTING IN BED.
[2021-01-16] VITALS (10 sets, daily range): BP systolic 122–156; BP diastolic 75–97; PULSE 86–107; RESP 16–99; TEMP 36.7–37.3; O2SAT 91–95
[2021-01-16] MEDS: HYDROmorphone 1 mg/mL INJ 1 mL IVP ×2 (02:28→12:09)
[2021-01-16] MEDS: oxyCODONE-APAP 5-325 mg Tablet 1 TAB PO ×2 (05:00→15:42)
[2021-01-16] MEDS: piperacillin-tazobactam 3.375 GM in sodium chloride 0.9% (plus) 50 ML IV (05:01)
[2021-01-16] MEDS: ketorolac 30 mg/mL INJ 15 MG IVP (08:37)
--- NOTE | 2021-01-16 16:43 | PM.DCS ---
Discharge Providers Date of Admission: 01/13/21 18:10 Date of Discharge: January 16, 2021 Attending Provider at Admission: Avi Hayden MD Attending Provider at Discharge: Avi Hayden MD Diagnoses at Discharge Discharge Diagnosis (1) Abscess of deep perineal space: Status: Acute (2) Cellulitis of scrotum: Status: Acute Reason for Visit Reason for Visit: Deep perineal abscess, cellulitis of scrotum Hospital Course Hospital Course Patient was evaluated in the emergency department on 01/13/2021 emergently for concern for possible Jessica's gangrene. He had a history of recurrent perineal abscess with chronic intermittent drainage very frequently from the perineum. He described a chronically swollen scrotum but a dramatic change beginning the day of the admission with redness creeping up into the right groin. Physical examination was not obviously consistent with Jessica's gangrene. He did have some drainage sinuses seen on the skin in the perineum, was tender, had some induration there. Because of the concern about the dramatic change that occurred that day it was recommended that he go to the operating room for perineal exploration possible wide debridement including the scrotum if there was evidence of Jessica's. Emergency surgery was performed. He was found to have a very indurated perineum deeply extending into the perineum with multiple sinus tracts and small abscesses with no large abscess identified. A large amount of this bad tissue including induration and sinus tracts was excised. There did not appear to be any extension into the scrotum or toward the rectum. No further excision of skin including the skin of the scrotum was required. The large wound was packed and he was begun on wet to dry dressing changes on the floor. His white count which was elevated at time of admission normalized quickly. He spiked a fever the night of the procedure but then normalized after that. His wound was healing well without evidence of gross infection. He still have persistent swelling and erythema of the scrotum but that improved every day. The skin appeared to be healthy with good capillary refill and there was no further extension of the redness in the groin. His pain improved as well. There was no other systemic concerns. Culture showed Proteus and E. coli from the wound. While in the hospital he was on vancomycin, Cleocin, Zosyn and he was switched to oral Levaquin at discharge. Plans were made for follow-up 2 days after discharge for wound check but he was instructed to call if his clinical situation worsened. Discharged in stable condition. Physical Exam Narrative: EXAM NARRATIVE: Decreased redness and swelling of the scrotum by some degree today. Wound looks healthy. Developing granulation tissue. No foul odor or increasing foul discharge. Redness overall in the groin has decreased. Decreased tenderness as well The cellulitis which initially was of concern for potentially Jessica's is improving. Const: COMMON NORMALS: no acute distress, alert and well nourished GENERAL APPEARANCE: well kempt and well developed ORIENTATION/CONSCIOUSNESS: not confused HENMT: COMMON NORMALS: normocephalic and atraumatic HEAD & SCALP: normocephalic and atraumatic Eye: COMMON NORMALS: conjunctivae normal and no scleral icterus CONJUNCTIVA: Yes conjunctivae normal Neck/C-Spine: COMMON NORMALS: full ROM GENERAL: Yes normal visual inspection Resp: COMMON NORMALS: normal respiratory effort EFFORT & INSPECTION: No labored and No Actively coughing Extremity: COMMON NORMALS: no clubbing, cyanosis or edema Neuro: SENSORIUM/ORIENTATION: Yes alert Psych: COMMON NORMALS: mental status grossly normal APPEARANCE: Yes grossly normal and Yes well kempt ATTITUDE: Yes calm and Yes engaged Skin: COMMON NORMALS: no rashes or lesions noted and no jaundice GENERAL SKIN EXAM: no rashes or lesions noted Urinary Catheter Management^: Nelson Latex: Cath Placed During This Visit: yes, but has since been removed by the nurse Reason for Continuing Indwelling Catheter: Decision to DC Catheter Urinary Catheter Date of Insertion: 01/13/21 Urinary Catheter Time of Insertion: 17:35 Date Urinary Catheter Removed: 01/14/21 Time Urinary Catheter Discontinued: 10:48 Discharge Data Data Completed and Pending: Completed Studies During Hospitalization Category Date Time Status CT abdomen pelvis w con* [id number] Urge nt Cat Scan 01/13/21 11:25 Completed Pending at discharge Category Date Time Status Anaerobic Culture Routine Lab 01/13/21 17:35 Results Blood Culture Sta t Lab 01/13/21 12:08 Results Wound Culture and Gram Stain Routin e Lab 01/13/21 17:35 Results Pathology: Surgic al [PTH] Routine Pth 01/13/21 17:35 Received Vitals: Last Vital Signs Temp 98.6 F 01/16/21 15:41 Pulse 107 H 01/16/21 15:41 Resp 18 01/16/21 15:42 BP 142/87 01/16/21 15:41 Pulse Ox 93 01/16/21 15:42 Discharge Plan Discharge Patient Disposition: Home Condition: Stable Prescriptions: [place] 5-325 mg tablet 1 tab PO Q8H PRN (Reason: pain) Qty: 16 RF: 0 levofloxacin 500 mg tablet 500 mg PO DAILY 7 Days Qty: 14 RF: 1 Discharge Orders: Discharge Order (Routine); Ordered 01/16/21 Ordered By: Avi Hayden Referrals: Avi Hayden MD [Physician] - 01/18/21 (Wound check) Patient Instructions: Pilonidal Cyst (DC), Abscess (GEN), Incision and Drainage (DC) Activity Restrictions/Additional Instructions: 1. Change dressing 1-2 times per day. Twice a day if the dressing gets soupy in between changes. 2. A prescription for LEVAQUIN has been sent to the pharmacy with some oral pain medication. 3. I would like to see you in my office on Saturday for a quick wound check. Please call if you have any concerns or questions prior to that time. Discharge Attestations Time Spent in Discharge Care*: greater than 30 min Quality Metrics Clinical Quality Measures During this hospital stay, did patient experience: None Coding Level of Care Code Acute Flexographic Printing Machinist for Ana Durant Diagnoses Abscess of deep perineal space N34.0 Cellulitis of scrotum N49.2
== END 2021-01-16 17:50 | disposition home or self-care (01) | DRG 581 ==
LOC: ER 11:45 → OR 16:28 → MEDSURG 01-14 09:13
PROVIDERS: Admitting Provider Urology; Emergency Provider Family Medicine; Visit Provider Urology
PROC: 0J9B0ZZ Drainage of Perineum Subcutaneous Tissue and Fascia, Open Approach (ICD-10-PCS; principal; 2021-01-13 16:00)
DX: L02.215 Cutaneous abscess of perineum (principal); N49.2 Inflammatory disorders of scrotum; L05.91 Pilonidal cyst without abscess; B96.4 Proteus (mirabilis) (morganii) as the cause of diseases classified elsewhere; B96.20 Unspecified Escherichia coli [E. coli] as the cause of diseases classified elsewhere
CPT/HCPCS: 36415; 74177; 80048; 80053; 80202; 81001; 83605; 85025; 86140; 87040; 87070; 87075; 87077; 87186; 87205; 88305; 96365; 96367; 96375; 99285; J1170; J1885; J2060; J2175; J2270; J2405; J2543; J2704; J3010; J3370; J3490; J7030; J7040; Q9967

== ENCOUNTER → 2021-02-06 08:09 | Outpatient (BNVA) | payer OTHER, SELFPAY | PROVIDERS: PCP Urology; Visit Provider Urology | DX: N49.2 Inflammatory disorders of scrotum (principal); I89.0 Lymphedema, not elsewhere classified; N34.0 Urethral abscess | CPT/HCPCS: 81003 ==

== ENCOUNTER → 2021-03-01 07:34 | Outpatient (BNVA) | payer OTHER, SELFPAY | PROVIDERS: PCP Family Medicine; Visit Provider Urology | DX: N34.0 Urethral abscess (principal); N49.2 Inflammatory disorders of scrotum; I89.0 Lymphedema, not elsewhere classified | CPT/HCPCS: 81003 ==

== ENCOUNTER 2021-05-03 13:18 | Emergency (ER) | payer OTHER, SELFPAY ==
[2021-05-03 14:08] VITALS: BP 129/91; PULSE 94; RESP 18; TEMP 37.2; O2SAT 97; BMI 36.2
--- NOTE | 2021-05-03 16:37 | USCV_ITS ---
Jayson Garza Age: 36 Gender: M : 1985 Exam Date: 05/03/2021 17:17 Ordering Phys: Nadege Gonzalez Technologist: Exam Location: [facility] [place] Indication: rt leg pain and swelling HISTORY: Lower extremity edema. PROCEDURES: Venous duplex imaging was performed in only the right lower extremity. The following venous structures were evaluated: common femoral vein, profunda vein, proximal portion of the greater saphenous vein, superficial femoral vein, and the popliteal vein. In addition, the posterior tibial and peroneal trunk were evaluated. FINDINGS: Normal 2-D Doppler and augmentation and compressibility throughout the lower extremity venous structures. Additional imaging through the proximal calf veins also reveals no thrombus. Limited evaluation of the greater saphenous vein is patent with no thrombus. CONCLUSIONS No DVT right lower extremity. Dr. Monalisa Miranda DO (Electronically Signed) Final Date: 04 May 2021 09:48 S
--- NOTE | 2021-05-03 17:08 | ED_ITS ---
Documented by User: Nadege Gonzalez 05/03/21 17:09 HPI - Extremity Problem General: Chief complaint: Extremity Injury, Lower Stated complaint: knee pain Time Seen by Provider: 05/03/21 16:23 Source: patient Mode of arrival: ambulatory Limitations: no limitations History of Present Illness: MD Complaint: extremity pain and extremity swelling Onset (ago): week(s) (2) Pain Consistency: constant Associated symptoms: Deny chest pain, fever(s) or rash Review of Systems Const: Denies: fever(s), chills, body aches, change in appetite, change in weight, fatigue, malaise or diaphoresis Eyes: Denies: change in vision, blurry vision, blind spots, photophobia, eye discomfort, eye discharge, eye redness, floaters or seeing flashes ENMT: Denies: throat pain, uvular edema, enlarged tonsils, odynophagia, hoarseness, mouth pain, swelling of lips/tongue, oral sores, bleeding gums, dental pain, dry mouth, ear or mastoid pain, ear discharge, change in hearing, tinnitus, disequilibrium, nasal discharge, nasal congestion, post nasal drip or sinus pain Card: Denies: chest pain, palpitations, irregular heart rhythm, edema, swelling of feet/ankles, lightheadedness, syncope, pre-syncope, dyspnea on exertion, orthopnea, leg pain with exertion or acrocyanosis Resp: Denies: dyspnea, productive cough, non-productive cough, wheezing, stridor, pain on inspiration, change in phlegm color, hemoptysis or chest congestion GI: Denies: abdominal pain, nausea, vomiting, hematemesis, dysphagia, diarrhea , constipation, GI cramping, change in bowel habits or rectal pain : Denies: flank pain, dysuria, urinary frequency, urinary urgency, urinary h esitancy or hematuria Musc: Denies: neck pain, back pain, extremity pain, extremity swelling, joint pain, joint swelling, joint redness, joint warmth or deformity Skin/Breast: Reports: other (right knee pain and swelling); Denies: rash, pruritus, erythema, sores, new lesions, changes in skin color or dry skin Neuro: Denies: headache(s), numbness in extremities, weakness in extremities, sensory changes, lack of coordination, difficulty walking, frequent falls, dizziness, vertigo, confusion, behavioral changes, Slurred speech present, difficulty communicating thoughts or seizure-like activity Psych: Denies: anxiety, depression, suicidal ideation or homicidal ideation Endo: Denies: polyuria, polydipsia, tired all the time, cold intolerance, excessive sweating, flushing, hot flashes or heat intolerance Ritesh/Lymph: Denies: easy bruising, easy bleeding, petechiae, purpura, enlarged lymph nodes or tender lymph nodes All/Imm: Denies: urticaria, throat swelling, tongue swelling, facial swelling, acute wheezing or itchy eyes PFSH ED PFSH: Medical History Abscess of deep perineal space Pilonidal cyst Surgical History History of surgical removal of pilonidal cyst Status post incision and drainage Family History Denies family history of Diabetes Anesthesia complication Bleeding disorder Social History Smoking and tobacco status: current every day smoker Alcohol intake: current Alcohol intake frequency: few times a week Marital status: Current occupational status: employed 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 History of recent travel: No Physical Exam HENMT: THROAT: no uvular edema Course Vital Signs: Vital signs: Vital Signs Temperature 99.0 F 05/03/21 14:08 Pulse Rate 94 05/03/21 14:08 Respiratory Rate 18 05/03/21 14:08 Blood Pressure 129/91 05/03/21 14:08 Pulse Oximetry 97 05/03/21 14:08 MDM - Extremity (Nontraumatic) Lab Data: Labs: Lab Results 05/03/21 05/03/21 Range/Units 17:34 17:34 WBC 13.8 H (4.0-10.0) 10^3/ uL RBC 4.46 (4.1-5.3) 10^6/u L Hgb 15.3 (11.7-16.6) g/dL Hct 44.9 (42.0-52.0) % MCV 100.7 H (80-94) fL MCH 34.3 H (28.0-34.0) pg MCHC 34.1 (30.0-36.0) g/dL RDW 12.4 (12.1-15.1) % Plt Count 273 (130-400) 10^3/c mm MPV 10.1 (7.4-10.4) fL Neut % (Auto) 68.1 % Lymph % (Auto) 23.5 % Ransom % (Auto) 6.2 % Eos % (Auto) 1.5 % Baso % (Auto) 0.3 % Neut # (Auto) 9.38 H (1.8-7.7) 10^3/u L Lymph # (Auto) 3.2 (0.8-4.8) 10^3/u L Ransom # (Auto) 0.9 (0.2-0.9) 10^3/u L Eos # (Auto) 0.2 (0.0-0.8) 10^3/u L Baso # (Auto) 0.0 (0.0-0.1) 10^3/u L Nucleated RBC % (a uto) 0 % Nucleated RBCs # 0.0 /100WBC C-Reactive Protein 13.7 H (0.0-4.9) mg/L Discharge Plan Discharge Patient Disposition: Home Clinical Impression: Cellulitis of knee, right Condition: Stable Prescriptions: New cephalexin 500 mg capsule 500 mg PO QID 7 Days Qty: 28 RF: 0 No Action ondansetron HCl 8 mg tablet 8 mg PO Q8H PRN (Reason: nausea and vomiting) Qty: 12 RF: 1 levofloxacin 500 mg tablet 500 mg PO DAILY 7 Days Qty: 14 RF: 1 [place] 5-325 mg tablet 1 tab PO Q8H PRN (Reason: pain) Qty: 15 RF: 0 Discharge Orders: Discharge ED (Routine); Ordered 05/03/21 Ordered By: Tab Harper Referrals: Geraldine Andrade DO [Primary Care Provider] - Discharge Diet: Advance as tolerated Discharge Activity: Increase activity as tolerated Patient Instructions: Cellulitis (ED), Opioid Safety Activity Restrictions/Additional Instructions: Home and rest. Elevate extremity. Drink plenty of water with antibiotic. Take medication as directed. Follow-up with primary care in 3 days for recheck. Return to the ER for worsening symptoms or new concerns. Stand Alone Forms: Work/School Release Sign Out Sign Out Data: Patient Sign Out occurred on 05/03/21 at 17:18. Patient's care was discussed, and care was transferred from to Tab Harper. Coding Level of Care Code ED Branch Customer Service Representative for [employer] Exam Problem Focused Documented by User: KAYLIE Ramirez 05/03/21 18:25 HPI - Extremity Problem General: Chief complaint: Extremity Injury, Lower Stated complaint: knee pain Time Seen by Provider: 05/03/21 16:23 History of Present Illness: HPI Narrative: 36-year-old male comes in today being evaluated for some heat and redness noted to the anterior right knee. Patient reports that 2 weeks ago while on vacation he slipped and fell striking his knee against the wet floor alongside a pool. Patient reports it was sore for a couple of days and then resolved. Patient reports then approximately 2 days ago he started having heat and redness to the anterior part of his knee. Patient appears well. Patient appears no acute distress. 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 Ultrasound for DVT was negative. My exam the patient noted mild induration and redness to the infrapatellar area of the right knee. Normal range of motion. No joint line tenderness. Vital Signs: Vital signs: Vital Signs Temperature 99.0 F 05/03/21 14:08 Pulse Rate 94 05/03/21 14:08 Respiratory Rate 18 05/03/21 14:08 Blood Pressure 129/91 05/03/21 14:08 Pulse Oximetry 97 05/03/21 14:08 MDM - Extremity (Nontraumatic) MDM Narrative: Medical decision making narrative: Patient came in today for complaints of redness and swelling to the right knee. Patient reports hitting his knee about 2 weeks ago while on vacation. It seemed to get better but over the last 2 days patient is noticed some heat and redness to the knee. On exam we note an area of redness and inflammation approximately 10 cm diameter to the infrapatellar area of the right knee. Patient has good range of motion. Patient has no significant fever or abnormal vital signs. Differential diagnosis includes not limited to cellulitis, septic arthritis, prepatellar bursitis. X-ray was unremarkable. Ultrasound for DVT was negative. Laboratory values noted the mild increase in leukocytes at 13,000, and a mild increase in CRP at 13. Reviewed exam with patient recommended treatment for cellulitis. Patient reported understanding and agreed to plan. Patient was given a gram of Rocephin IM, and cephalexin to follow. Patient reported understanding of care plan and need for follow-up or return to the ER. Lab Data: Labs: Lab Results 05/03/21 05/03/21 Range/Units 17:34 17:34 WBC 13.8 H (4.0-10.0) 10^3/ uL RBC 4.46 (4.1-5.3) 10^6/u L Hgb 15.3 (11.7-16.6) g/dL Hct 44.9 (42.0-52.0) % MCV 100.7 H (80-94) fL MCH 34.3 H (28.0-34.0) pg MCHC 34.1 (30.0-36.0) g/dL RDW 12.4 (12.1-15.1) % Plt Count 273 (130-400) 10^3/c mm MPV 10.1 (7.4-10.4) fL Neut % (Auto) 68.1 % Lymph % (Auto) 23.5 % Ransom % (Auto) 6.2 % Eos % (Auto) 1.5 % Baso % (Auto) 0.3 % Neut # (Auto) 9.38 H (1.8-7.7) 10^3/u L Lymph # (Auto) 3.2 (0.8-4.8) 10^3/u L Ransom # (Auto) 0.9 (0.2-0.9) 10^3/u L Eos # (Auto) 0.2 (0.0-0.8) 10^3/u L Baso # (Auto) 0.0 (0.0-0.1) 10^3/u L Nucleated RBC % (a uto) 0 % Nucleated RBCs # 0.0 /100WBC C-Reactive Protein 13.7 H (0.0-4.9) mg/L Discharge Plan Discharge Patient Disposition: Home Clinical Impression: Cellulitis of knee, right Condition: Stable Prescriptions: New cephalexin 500 mg capsule 500 mg PO QID 7 Days Qty: 28 RF: 0 No Action ondansetron HCl 8 mg tablet 8 mg PO Q8H PRN (Reason: nausea and vomiting) Qty: 12 RF: 1 levofloxacin 500 mg tablet 500 mg PO DAILY 7 Days Qty: 14 RF: 1 [place] 5-325 mg tablet 1 tab PO Q8H PRN (Reason: pain) Qty: 15 RF: 0 Discharge Orders: Discharge ED (Routine); Ordered 05/03/21 Ordered By: Tab Harper Referrals: Geraldine Andrade DO [Primary Care Provider] - Discharge Diet: Advance as tolerated Discharge Activity: Increase activity as tolerated Patient Instructions: Cellulitis (ED), Opioid Safety Activity Restrictions/Additional Instructions: Home and rest. Elevate extremity. Drink plenty of water with antibiotic. Take medication as directed. Follow-up with primary care in 3 days for recheck. Return to the ER for worsening symptoms or new concerns. Stand Alone Forms: Work/School Release Sign Out Sign Out Data: Patient Sign Out occurred on 05/03/21 at 17:18. Patient's care was discussed, and care was transferred from to Tab Harper. Coding Level of Care Code ED Branch Customer Service Representative for Ana Fwlinda Exam Problem Focused
--- NOTE | 2021-05-03 17:24 | XRR_ITS ---
PROCEDURE INFORMATION: Exam: XR Right Knee Exam date and time: 05/03/2021 5:24 PM Age: 36 years old Clinical indication: Injury or trauma; Fall; Blunt trauma; Knee; Right; Additional info: Redness and swelling, prior injury no imaging TECHNIQUE: Imaging protocol: XR Right knee. Views: 3 views. COMPARISON: No relevant prior studies available. FINDINGS: Bones/joints: There is some degenerative spurring from the anterior tibial tubercle. Soft tissues: Mild soft tissue swelling. XR/XR knee RT 3V* [id number] IMPRESSION: No fracture is identified.
[2021-05-03 17:48] LABS: Basophils % 0.3 %; Eosinophils # 0.2 10^3/uL (0.0-0.8); Eosinophils % 1.5 %; Hematocrit 44.9 % (42.0-52.0); Hemoglobin 15.3 g/dL (11.7-16.6); Lymphocytes # 3.2 10^3/uL (0.8-4.8); Lymphocytes % 23.5 %; Mean Corpuscular HGB Conc 34.1 g/dL (30.0-36.0); Mean Corpuscular Hemoglobin 34.3 pg (28.0-34.0); Mean Corpuscular Volume 100.7 fL (80-94); Mean Platelet Volume 10.1 fL (7.4-10.4); Monocytes # 0.9 10^3/uL (0.2-0.9); Monocytes % 6.2 %; Neutrophils # 9.38 10^3/uL (1.8-7.7); Neutrophils % 68.1 %; Nucleated Red Blood Cells % 0 %; Platelet Count 273 10^3/cmm (130-400); Red Blood Count 4.46 10^6/uL (4.1-5.3); Red Cell Distribution Width 12.4 % (12.1-15.1); White Blood Count 13.8 10^3/uL (4.0-10.0)
[2021-05-03 18:07] LABS: C Reactive Protein 13.7 mg/L (0.0-4.9)
[2021-05-03] MEDS: cefTRIAXone 1,000 MG in lidocaine 1% 2.1 ML 1 MG IM (18:32)
== END 2021-05-03 18:35 | disposition home or self-care (01) ==
PROVIDERS: Registered Nurse; Emergency Provider Nurse Practitioner Family; PCP Family Medicine
DX: L03.115 Cellulitis of right lower limb (principal); F17.210 Nicotine dependence, cigarettes, uncomplicated
CPT/HCPCS: 73562; 85025; 86140; 87040; 93971; 96372; 99283; J0696